=== PATIENT | male | born 1975 | race Caucasian/White ===

== ENCOUNTER 2018-10-15 06:44 | Day surgery (SDC) | payer OTHER ==
[~2018-10-15] VITALS: Ht 175.3 cm; Wt 97.1 kg
[~2018-10-15 06:44] MED LIST: ACYC800; ALBU2.5V5; ALBU90I INH; ALBU90OI INH; ALBU90OI61 INH; ALPR.25 PO; ALPR.5 PO; AMOCLA875 PO; AMOX500 PO; AZIT250 PO; CODGUAEL PO; CRUTCH3 XX; CYCL10; CYCL10 PO; DIAZ5 PO; DOXY100 PO; FLUT.05NI; GABA300T24; GUAI600T33 PO; HYDACE5 PO; HYDGUAL120 PO; HYDROCODON-ACE1 EAC3; IBUP800 PO; KETO10 PO; KETOROLAC60 MG/2 ML; LACT10SY PO; LORA.5 PO; LORA1 PO; LORA2 PO; MOTRIN; Monodox100 MG PO; NAPR500 PO; Naprosyn500 MG PO; Norco 5-325 Ta1 EACH PO; ONDA4 PO; OXYACE5T PO; Omeprazole20 M1; PANT40 PO; PENVK500 PO; PRED20 PO; PROCODE120 PO; PROM25 PO; PROP10 PO; RXLORA1 PO; SPACE CHAMBER1 EACH MC; SUCR1; TRAM50 PO; Zofran4 MG PO
--- NOTE | 2018-10-15 08:53 | NUR ---
10/15/18 0853 Lee Orozco LATE ENTRY: AT BEGINNING OF PROCEDURE PT O2 SATURATION DROPPED TO HIGH 80S. TURNED 02 UP TO 5L, PT 02 SATURATION STABLE T/O REST OF PROCEDURE.
== END 2018-10-15 09:21 | disposition home or self-care (01) ==
LOC: ORSCSDS 06:44
PROVIDERS: Internal Medicine Gastroenterology
PROC: 0DB68ZX Excision of Stomach, Via Natural or Artificial Opening Endoscopic, Diagnostic (ICD-10-PCS; principal; 2018-10-15 08:00)
PROC: 0DBM8ZX Excision of Descending Colon, Via Natural or Artificial Opening Endoscopic, Diagnostic (ICD-10-PCS; principal; 2018-10-15 08:00)
PROC: 0DB58ZX Excision of Esophagus, Via Natural or Artificial Opening Endoscopic, Diagnostic (ICD-10-PCS; principal; 2018-10-15 08:00)
PROC: 0DB98ZX Excision of Duodenum, Via Natural or Artificial Opening Endoscopic, Diagnostic (ICD-10-PCS; principal; 2018-10-15 08:00)
DX: R19.4 Change in bowel habit (principal); R13.10 Dysphagia, unspecified; K92.1 Melena; Z80.0 Family history of malignant neoplasm of digestive organs; R10.13 Epigastric pain; K29.70 Gastritis, unspecified, without bleeding; K29.80 Duodenitis without bleeding; Z87.891 Personal history of nicotine dependence; E78.5 Hyperlipidemia, unspecified; E78.1 Pure hyperglyceridemia; Z79.899 Other long term (current) drug therapy
CPT/HCPCS: 88305; 88342; J0330; J1980; J2250; J2405; J7120

== ENCOUNTER 2019-01-08 06:47 | Day surgery (SDC) | payer OTHER ==
[~2019-01-08] VITALS: Ht 175.3 cm; Wt 100.1 kg
[~2019-01-08 06:47] MED LIST changes: +ACYC800 PO; +Accuneb1.25 MG/3 INH; +KETO60I IM; +Mobic15 MG PO; +Norco 10-325 T1 EACH PO; +Omeprazole20 M1 PO; +SUCR1 PO; +TERB250 PO
== END 2019-01-08 08:55 | disposition home or self-care (01) ==
LOC: ORSCSDS 06:47
PROVIDERS: Internal Medicine Gastroenterology
PROC: 0DB68ZX Excision of Stomach, Via Natural or Artificial Opening Endoscopic, Diagnostic (ICD-10-PCS; principal; 2019-01-08 08:00)
PROC: 0DB88ZX Excision of Small Intestine, Via Natural or Artificial Opening Endoscopic, Diagnostic (ICD-10-PCS; principal; 2019-01-08 08:00)
PROC: 0DB58ZX Excision of Esophagus, Via Natural or Artificial Opening Endoscopic, Diagnostic (ICD-10-PCS; principal; 2019-01-08 08:00)
DX: K21.0 Gastro-esophageal reflux disease with esophagitis (principal); K29.80 Duodenitis without bleeding; R10.13 Epigastric pain; F41.9 Anxiety disorder, unspecified; E78.5 Hyperlipidemia, unspecified; K29.70 Gastritis, unspecified, without bleeding; Z72.0 Tobacco use; Z87.891 Personal history of nicotine dependence; Z79.899 Other long term (current) drug therapy
CPT/HCPCS: 88305; J0461; J1980; J2250; J2405; J2704; J7120

== ENCOUNTER 2019-05-14 09:48 | Day surgery (SDC) | payer OTHER ==
[~2019-05-14] VITALS: Ht 175.3 cm; Wt 102.6 kg
[~2019-05-14 09:48] MED LIST changes: +Prilosec Otc20 MG PO
== END 2019-05-14 12:35 | disposition home or self-care (01) ==
LOC: ORSCSDS 09:48
PROVIDERS: Internal Medicine Gastroenterology
PROC: 0DB68ZX Excision of Stomach, Via Natural or Artificial Opening Endoscopic, Diagnostic (ICD-10-PCS; principal; 2019-05-14 11:00)
DX: R13.10 Dysphagia, unspecified (principal); K20.9 Esophagitis, unspecified; Z87.11 Personal history of peptic ulcer disease; F17.220 Nicotine dependence, chewing tobacco, uncomplicated
CPT/HCPCS: 88305; 88342; J2250; J2704; J7120

== ENCOUNTER 2020-03-02 21:38 | Emergency (ER) | payer OTHER ==
[~2020-03-02] VITALS: Ht 175.3 cm; Wt 94.8 kg
[2020-03-02 22:35] LABS: BASOPHILS ABSOLUTE AUTO 0.03 K/mm3 (0.00-0.23); BASOPHILS PERCENT AUTO 0 % (0-2); EOSINOPHILS ABSOLUTE AUTO 0.22 K/mm3 (0.00-0.68); EOSINOPHILS PERCENT AUTO 2 % (0-6); Hematocrit 43.2 % (37.0-53.0); Hemoglobin 13.7 g/dL (13.5-17.5); IMMATURE GRAN ABSOLUTE AUTO 0.03 K/mm3 (0.00-0.10); IMMATURE GRAN PERCENT AUTO 0 % (0-1); LYMPHOCYTES ABSOLUTE AUTO 2.35 K/mm3 (0.84-5.20); LYMPHOCYTES PERCENT AUTO 25 % (21-46); MONOCYTES ABSOLUTE AUTO 0.57 K/mm3 (0.16-1.47); MONOCYTES PERCENT AUTO 6 % (4-13); Mean Corpuscular HGB 28.5 pg (26.0-34.0); Mean Corpuscular HGB Conc 31.7 g/dL (31.5-36.5); Mean Corpuscular Volume 90 fL (80-100); Mean Platelet Volume 9.5 fL (9.1-12.4); NEUTROPHILS ABSOLUTE AUTO 6.32 K/mm3 (1.96-9.15); NEUTROPHILS PERCENT AUTO 66 % (41-73); Platelet Count 233 K/mm3 (150-400); RDW Coefficient Variation 13.2 % (11.7-14.2); RDW Standard Deviation 43.9 fL (35.1-46.3); Red Blood Cell Count 4.81 M/mm3 (4.30-5.90); White Blood Cell Count 9.52 K/mm3 (4.00-11.30)
[2020-03-02 22:52] LABS: Alanine Aminotransfer (ALT/SGP 54 U/L (12-78); Albumin, Blood 3.8 g/dL (3.4-5.0); Albumin/Globulin Ratio 1.1 (0.8-1.8); Alk Phos 48 U/L (50-136); Anion Gap 4 mmol/L (6-16); Aspartate Aminotrans (AST/SGOT 25 U/L (12-37); Bilirubin, Total 0.3 mg/dL (0.1-1.0); Blood Urea Nitrogen 17 mg/dL (8-24); Bun/Creatinine Ratio 14.8 (12.0-20.0); CO2, Blood 27 mmol/L (21-32); Calcium, Blood 8.8 mg/dL (8.5-10.1); Chloride, Blood 110 mmol/L (98-108); Creatinine, Blood 1.15 mg/dL (0.60-1.20); Globulin, Blood 3.5 g/dL (2.2-4.0); Glomerular Filtration Rate >60 (60-); Glucose, Blood 97 mg/dL (70-99); Potassium, Blood 3.9 mmol/L (3.5-5.5); Sodium, Blood 141 mmol/L (136-145); Total Protein, Blood 7.3 g/dL (6.4-8.2)
[2020-03-03] MEDS ORDERED: Norco 5-325 Ta1 EACH PO (01:52)
[2020-03-03] MEDS ORDERED: ONDA4ODT MM (01:52)
== END 2020-03-03 02:15 | disposition home or self-care (01) ==
LOC: ER 21:38
PROVIDERS: Emergency Medicine
DX: K85.90 Acute pancreatitis without necrosis or infection, unspecified (principal); I10 Essential (primary) hypertension; Z88.8 Allergy status to other drugs, medicaments and biological substances; Z79.899 Other long term (current) drug therapy; Z87.891 Personal history of nicotine dependence
CPT/HCPCS: 36415; 74177; 80053; 83690; 85025; 96361; 96374-59; 96375; 96376; 99284-25; A9270; A9270-GY; J1170; J1885; J2405; J2550; J3010; J7030; Q9967

== ENCOUNTER 2021-05-29 15:19 | Emergency (ER) | payer OTHER ==
[~2021-05-29] VITALS: Ht 175.3 cm; Wt 88.5 kg
[~2021-05-29 15:19] MED LIST changes: +ONDA4ODT MM
== END 2021-05-29 16:34 | disposition home or self-care (01) ==
LOC: ER 15:19
DX: U07.1 COVID-19 (principal); I10 Essential (primary) hypertension; Z88.8 Allergy status to other drugs, medicaments and biological substances; Z79.899 Other long term (current) drug therapy
CPT/HCPCS: 36415; 99285; J1885; J2405

== ENCOUNTER 2021-06-02 11:52 | Emergency (ER) | payer OTHER ==
[~2021-06-02] VITALS: Ht 175.3 cm; Wt 88.5 kg
[2021-06-02 12:33] LABS: Hematocrit 42.1 % (37.0-53.0); Hemoglobin 14.3 g/dL (13.5-17.5); Mean Corpuscular HGB 29.3 pg (26.0-34.0); Mean Corpuscular Volume 86 fL (80-100); Mean Platelet Volume 9.2 fL (9.1-12.4); Platelet Count 178 K/mm3 (150-400); RDW Standard Deviation 44.5 fL (35.1-46.3); Red Blood Cell Count 4.88 M/mm3 (4.30-5.90)
[2021-06-02 12:51] LABS: Alanine Aminotransfer (ALT/SGP 68 U/L (12-78); Albumin, Blood 3.1 g/dL (3.4-5.0); Albumin/Globulin Ratio 0.8 (0.8-1.8); Alk Phos 48 U/L (50-136); Anion Gap 6 mmol/L (6-16); Aspartate Aminotrans (AST/SGOT 85 U/L (12-37); Bilirubin, Total 0.4 mg/dL (0.1-1.0); Blood Urea Nitrogen 13 mg/dL (8-24); Bun/Creatinine Ratio 12.5 (12.0-20.0); CO2, Blood 25 mmol/L (21-32); Calcium, Blood 7.8 mg/dL (8.5-10.1); Chloride, Blood 101 mmol/L (98-108); Creatinine, Blood 1.04 mg/dL (0.60-1.20); Globulin, Blood 3.8 g/dL (2.2-4.0); Glomerular Filtration Rate >60 (60-); Glucose, Blood 130 mg/dL (70-99); Potassium, Blood 4.2 mmol/L (3.5-5.5); Sodium, Blood 132 mmol/L (136-145); Total Protein, Blood 6.9 g/dL (6.4-8.2); Troponin I <0.015 ng/mL (0.000-0.040)
[2021-06-02 12:58] LABS: BAND PERCENT MAN 8 % (0-8); BASOPHILS PERCENT MAN 0 % (0-2); EOSINOPHILS PERCENT MAN 0 % (0-6); LYMPHOCYTES % ATYPICAL MANUAL 13 % (0-0); LYMPHOCYTES ABSOLUTE MAN 2.24 K/mm3 (0.84-5.20); LYMPHOCYTES PERCENT MAN 20 % (21-46); MONOCYTES ABSOLUTE MAN 0.06 K/mm3 (0.16-1.47); MONOCYTES PERCENT MAN 1 % (4-13); NEUTROPHILS ABSOLUTE MAN 4.48 K/mm3 (1.96-9.15); SEG NEUTROPHILS PERCENT MAN 58 % (41-73); TOTAL CELLS COUNTED 100
[2021-06-02] MEDS ORDERED: DEXA2 PO (16:42)
== END 2021-06-02 17:46 | disposition home or self-care (01) ==
LOC: ER 11:52
PROVIDERS: Emergency Medicine Emergency Medical Services
DX: U07.1 COVID-19 (principal); J12.82 Pneumonia due to coronavirus disease 2019; I10 Essential (primary) hypertension; Z88.8 Allergy status to other drugs, medicaments and biological substances; Z79.899 Other long term (current) drug therapy
CPT/HCPCS: 36415; 71045; 80053; 83880; 84484; 85025; 93005; 93010; 96361; 96374; 96375; 99284-25; A9270; J1100; J1885; J7030

== ENCOUNTER 2021-06-04 10:42 | Inpatient (IN) | payer OTHER ==
[~2021-06-04] VITALS: Ht 175.3 cm; Wt 88.5 kg
[~2021-06-04 10:42] MED LIST changes: +DEXA2 PO
[2021-06-04 11:14] LABS: BASOPHILS ABSOLUTE AUTO 0.03 K/mm3 (0.00-0.23); BASOPHILS PERCENT AUTO 0 % (0-2); EOSINOPHILS PERCENT AUTO 0 % (0-6); Hematocrit 40.6 % (37.0-53.0); Hemoglobin 13.8 g/dL (13.5-17.5); IMMATURE GRAN ABSOLUTE AUTO 0.16 K/mm3 (0.00-0.10); IMMATURE GRAN PERCENT AUTO 1 % (0-1); LYMPHOCYTES PERCENT AUTO 6 % (21-46); MONOCYTES ABSOLUTE AUTO 1.09 K/mm3 (0.16-1.47); MONOCYTES PERCENT AUTO 6 % (4-13); Mean Corpuscular HGB 29.4 pg (26.0-34.0); Mean Corpuscular Volume 86 fL (80-100); Mean Platelet Volume 9.7 fL (9.1-12.4); NEUTROPHILS ABSOLUTE AUTO 14.88 K/mm3 (1.96-9.15); NEUTROPHILS PERCENT AUTO 87 % (41-73); Platelet Count 306 K/mm3 (150-400); RDW Coefficient Variation 13.8 % (11.7-14.2); RDW Standard Deviation 44.1 fL (35.1-46.3); White Blood Cell Count 17.16 K/mm3 (4.00-11.30)
[2021-06-04 12:15] LABS: Alanine Aminotransfer (ALT/SGP 72 U/L (12-78); Albumin, Blood 2.8 g/dL (3.4-5.0); Albumin/Globulin Ratio 0.7 (0.8-1.8); Alk Phos 51 U/L (50-136); Anion Gap 10 mmol/L (6-16); Aspartate Aminotrans (AST/SGOT 68 U/L (12-37); Bilirubin, Total 0.5 mg/dL (0.1-1.0); Blood Urea Nitrogen 20 mg/dL (8-24); Bun/Creatinine Ratio 23.4 (12.0-20.0); CO2, Blood 22 mmol/L (21-32); Calcium, Blood 8.1 mg/dL (8.5-10.1); Chloride, Blood 107 mmol/L (98-108); Creatinine, Blood 0.85 mg/dL (0.60-1.20); Globulin, Blood 4.2 g/dL (2.2-4.0); Glomerular Filtration Rate >60 (60-); Glucose, Blood 134 mg/dL (70-99); Potassium, Blood 4.3 mmol/L (3.5-5.5); Sodium, Blood 139 mmol/L (136-145)
--- NOTE | 2021-06-04 17:11 | NUR ---
SHIFT SUMMARY PATIENT ARRIVED ON THE UNIT VIA STRETCHER FROM THE EMERGENCY ROOM. PATIENT IS ALERT AND ORIENTED X4 COMPLAIN OF SUCSTERNAL CHEST AND BACK PAIN. SKIN ASSEMMENT COMPLETED SKINIS WARM DRY MOIST AND INTACT NO OPEN AREA. PATIENT ORIENTED TO ROOM AND CALL LIGHT. PATIENT ON 6L NON REBREATHER IN STABLE CONDITION.
[2021-06-05 05:34] LABS: BASOPHILS ABSOLUTE AUTO 0.03 K/mm3 (0.00-0.23); BASOPHILS PERCENT AUTO 0 % (0-2); EOSINOPHILS PERCENT AUTO 0 % (0-6); Hematocrit 39.4 % (37.0-53.0); Mean Corpuscular HGB 29.1 pg (26.0-34.0); Mean Corpuscular Volume 88 fL (80-100); Mean Platelet Volume 9.1 fL (9.1-12.4); Platelet Count 308 K/mm3 (150-400); RDW Coefficient Variation 13.9 % (11.7-14.2); RDW Standard Deviation 45.1 fL (35.1-46.3); Red Blood Cell Count 4.46 M/mm3 (4.30-5.90); White Blood Cell Count 16.58 K/mm3 (4.00-11.30)
[2021-06-05 05:38] LABS: IMMATURE GRAN ABSOLUTE AUTO 0.12 K/mm3 (0.00-0.10); IMMATURE GRAN PERCENT AUTO 1 % (0-1); LYMPHOCYTES ABSOLUTE AUTO 1.55 K/mm3 (0.84-5.20); LYMPHOCYTES PERCENT AUTO 9 % (21-46); MONOCYTES ABSOLUTE AUTO 1.46 K/mm3 (0.16-1.47); MONOCYTES PERCENT AUTO 9 % (4-13); NEUTROPHILS ABSOLUTE AUTO 13.42 K/mm3 (1.96-9.15); NEUTROPHILS PERCENT AUTO 81 % (41-73)
[2021-06-05 06:03] LABS: Alanine Aminotransfer (ALT/SGP 85 U/L (12-78); Albumin, Blood 2.6 g/dL (3.4-5.0); Albumin/Globulin Ratio 0.7 (0.8-1.8); Alk Phos 54 U/L (50-136); Anion Gap 7 mmol/L (6-16); Aspartate Aminotrans (AST/SGOT 60 U/L (12-37); Bilirubin, Total 0.3 mg/dL (0.1-1.0); Blood Urea Nitrogen 26 mg/dL (8-24); Bun/Creatinine Ratio 28.2 (12.0-20.0); CO2, Blood 24 mmol/L (21-32); Calcium, Blood 7.7 mg/dL (8.5-10.1); Chloride, Blood 110 mmol/L (98-108); Creatinine, Blood 0.92 mg/dL (0.60-1.20); Globulin, Blood 3.8 g/dL (2.2-4.0); Glomerular Filtration Rate >60 (60-); Glucose, Blood 128 mg/dL (70-99); Potassium, Blood 4.2 mmol/L (3.5-5.5); Sodium, Blood 141 mmol/L (136-145); Total Protein, Blood 6.4 g/dL (6.4-8.2)
--- NOTE | 2021-06-05 06:20 | NUR ---
SHIFT SUMMARY PATIENT ALERT AND ORIENTED. HAD NO COMPLAINTS OF PAIN. EASILY DESATS UPON EXHERTION, RT INVOLVED IN CARE. PATIENT CURRENTLY ON 14 LITERS O2 VIA OXYMIZER SATING AT 94%. CALL LIGHT WITHIN REACH. REPORT GIVEN TO ONCOMING RN.
--- NOTE | 2021-06-05 16:42 | NUR ---
PT STATED SHIFT AOX4 WITH ALOT OF ANXIETY TO TO OXYGEN LEVEL. PT WAS RUNNING 85-88% ON 15L OXIMIZER. THIS EXCELLENCE MANAGER NOTIFIED RT AND PT WAS ENCOURAGED TO LAY PRONE IN BED WITH NONREBREATHER RT FOUND PT WAS MOUTH BREATHING. PT'S O2 LEVEL IMMEDIATELYL WENT UP TO 98-100% ON 15L. PT HAS BEEN MAINTAINING O2 LEVELS SINCE AND HAS BEEN ALTERNATING TO PRONE POSITION. PT DOES DESAT WITH ALOT OF MOVEMENT AND HAS TO REST IN BETWEEN ANY POSITION CHANGES IN BED. CALL LIGHT WITHIN REACH WILL CONTINUE TO MONITOR.
--- NOTE | 2021-06-05 22:54 | NUR ---
PHYSICIAN COMMUNICATION CONTACTED EQUIPMENT PROCESSOR PHYSICIAN, DR EDGE, TO NOTIFY HIM THAT THE PATIENT WAS REQUESTING SOMETHING ASIDE FROM TYLENOL FOR PAIN AND SOMETHING TO HELP HIM SLEEP. DR EDGE ORDERED 50 MG PO TRAMADOL Q8 PRN AND 5 MG MELATONIN.
--- NOTE | 2021-06-06 06:16 | NUR ---
SHIFT SUMMARY PATIENT ALERT AND ORIENTED. MEDICATED PER EMAR FOR PAIN AND SLEEP. PATIENT CURRENTLY ON 15 LITERS O2 VIA NRB. NO ACUTE ISSUES NOTED OVERNIGHT. CALL LIGHT WITHIN REACH. REPORT GIVEN TO ONCOMING RN.
--- NOTE | 2021-06-06 17:13 | NUR ---
SHIFT SUMMARY PATIENT IS ALERT AND ORIENTED X4. PATIENT HAS BEEN ANXIOUS TO HIS CURRENT OXYGEN SATS. PATIENT IS CURRENTLY SATTING IN THE MID 90S ON 15 LITERS ON OXIMIZER. PATIENT WAS ANXIOUS ABOUT REPOSITIONING BUT HAS SATTED BETTWER IN SIDE LAYING POSITION. NO ACUTE EVENTS THIS SHIFT. WILL CONTINUE TO MONITOR UNTIL CHANGE OF SHIFT. BED IN LOCKED AND LOWEST POSITION. CALL LIGHT IN REACH.
--- NOTE | 2021-06-07 04:44 | NUR ---
SHIFT SUMMARY AOX4. PT HIGHLY ANXIOUS ABOUT BREATHING & SPO2 LEVELS, REPORTED TO THIS NURSE HE DIDNT FEEL COMFORTABLE IF I LEFT THE ROOM & WAS SCARED TO BE IN HOSPITAL, EDUCATED PT STATISTICAL CLERK ADVERTISING LIGHT. STATES HE USE TO TAKE XANAX FOR ANXIETY. LAST NIGHT PT STARTED COUGHING, USED CALL LIGHT TO SAY HE WAS "CHOKING" & COULDNT BREATH SPO2 94% ON 16L NONREBREATHER @THIS TIME, HOWEVER WITHIN A FEW MIN PT HAD WORKED HIMSELF UP & SPO2 DROPPED TO 80-84%. WHEN ASSESSING PT HE REPORTED HE WAS HAVING A PANIC ATTACK. INFORMED DR ANNE & SHE ORDERED PRN HYDRALAZINE. THIS AM I TITRATED O2 FROM 16L TO 14.5L SINCE PT SPO2 97-100% WHILE PT ASLEEP & LYING ON SIDE. HOWEVER PT WOKE UP & STATED "DID YOU TURN MY O2 DOWN?" & LOOKED ANXIOUS WITHIN A FEW MIN SPO2 DROPPED TO 81-84% AGAIN, GAVE PRN HYDRALAZINE & TURNED O2 BACK TO 16L ON NON REBREATHER. SPO2 CURRENTLY @99% WHILE PT RESTING. REPORTS LOW BACK PAIN, MEDICATED 1X c ULTRAM & APPLIED HEATING PAD. DENIES N/V. CALL LIGHT IN REACH. WCTM UNTIL NEXT SHIFT ASSUMES CARE.
[2021-06-07 05:52] LABS: BASOPHILS ABSOLUTE AUTO 0.04 K/mm3 (0.00-0.23); BASOPHILS PERCENT AUTO 0 % (0-2); EOSINOPHILS PERCENT AUTO 0 % (0-6); Hematocrit 42.6 % (37.0-53.0); Hemoglobin 14.2 g/dL (13.5-17.5); IMMATURE GRAN ABSOLUTE AUTO 0.15 K/mm3 (0.00-0.10); IMMATURE GRAN PERCENT AUTO 1 % (0-1); LYMPHOCYTES ABSOLUTE AUTO 1.79 K/mm3 (0.84-5.20); LYMPHOCYTES PERCENT AUTO 13 % (21-46); MONOCYTES ABSOLUTE AUTO 1.18 K/mm3 (0.16-1.47); MONOCYTES PERCENT AUTO 8 % (4-13); Mean Corpuscular HGB 29.5 pg (26.0-34.0); Mean Corpuscular HGB Conc 33.3 g/dL (31.5-36.5); Mean Corpuscular Volume 88 fL (80-100); Mean Platelet Volume 9.1 fL (9.1-12.4); NEUTROPHILS ABSOLUTE AUTO 10.85 K/mm3 (1.96-9.15); NEUTROPHILS PERCENT AUTO 77 % (41-73); Platelet Count 378 K/mm3 (150-400); RDW Coefficient Variation 13.9 % (11.7-14.2); RDW Standard Deviation 45.1 fL (35.1-46.3); Red Blood Cell Count 4.82 M/mm3 (4.30-5.90); White Blood Cell Count 14.01 K/mm3 (4.00-11.30)
[2021-06-07 06:39] LABS: Alanine Aminotransfer (ALT/SGP 171 U/L (12-78); Albumin, Blood 2.7 g/dL (3.4-5.0); Albumin/Globulin Ratio 0.7 (0.8-1.8); Alk Phos 68 U/L (50-136); Anion Gap 7 mmol/L (6-16); Aspartate Aminotrans (AST/SGOT 65 U/L (12-37); Bilirubin, Total 0.6 mg/dL (0.1-1.0); Blood Urea Nitrogen 23 mg/dL (8-24); Bun/Creatinine Ratio 23.5 (12.0-20.0); CO2, Blood 25 mmol/L (21-32); Calcium, Blood 8.2 mg/dL (8.5-10.1); Chloride, Blood 107 mmol/L (98-108); Creatinine, Blood 0.98 mg/dL (0.60-1.20); Globulin, Blood 3.9 g/dL (2.2-4.0); Glomerular Filtration Rate >60 (60-); Glucose, Blood 93 mg/dL (70-99); Potassium, Blood 4.4 mmol/L (3.5-5.5); Sodium, Blood 139 mmol/L (136-145); Total Protein, Blood 6.6 g/dL (6.4-8.2)
--- NOTE | 2021-06-07 17:19 | NUR ---
SHIFT SUMMARY PATIENT HAS BEEN ON 10 LITERS HIGH FLOW NASAL CANNULA DURING SHIFT AND SATTING >92. PATIENT HAS BEEN ANXIOUS MILDLY ABOUT NOT BEING ABLE TO BREATHE BUT WHEN PATIENT STATED THIS, HIS SATS WERE 95-65%. PATIENT WAS GIVEN HYDRALZINE ONCE THIS SHIFT AND HAS HAD NO OTHER EPISODES OF ANXIETY THIS SHIFT. NO OTHER ACUTE EVENTS THIS SHIFT. PATIENT HAS NO OTHER COMPLAINTS OF PAIN, NAUSEA OR VOMITTING THIS SHIFT. VITAL SIGNS REVIEWED. WILL CONTINUE TO MONITOR UNTIL SHIFT CHANGE.
--- NOTE | 2021-06-08 06:11 | NUR ---
SHIFT SUMMARY AOX4. VSS. PT MORE CALM TONIGHT, GAVE 25MG ATARAX 2X THIS SHIFT FOR ANXIETY. NO PANIC ATTACKS. SPO2 90-94% ON 10L O2 VIA HF NC. LS DIM. E/U RESP. REPORTS NASAL CONGESTION, INFORMED DR ANNE & SHE ORDERED NASAL SPRAY. GAVE NASAL SPRAY THIS AM & PT ABLE TO BLOW NOSE AFTERWARDS. LARGE MUCUS BLOOD CLOT WAS DISLODGE FROM NASAL PASSAGE. PT STATED HE FELT BETTER AFTER & WAS ABLE TO BREATH MORE EASY. REPORTED 5/10 PAIN IN LOW BACK, MEDICATED 1X c TRAMADOL, NO FURTHER DISCOMFORT REPORTED. CALL LIGHT IN REACH, ABLE TO MAKE NEEDS KNOWN.
--- NOTE | 2021-06-08 14:12 | NUR ---
PT CHANGED TO REGULAR NC AT 6 LPM. O2 SATS 90%. PT DESATS TO 86% WHEN STANDING.
--- NOTE | 2021-06-08 16:11 | NUR ---
PT HANDOFF TO MAYELIN FORTUNE. REPORT GIVEN. PT A/O STANDBY ASSIST IN ROOM AT THIS TIME. CURRENTLY ON 6 LPM VIA NC WITH SATS 90-94% AT REST AND DIPS TO 86% WHEN UP TO BSC. PT HAS HAD BEEN BLOWING NOSE WITH SMALL AMT OF BLOOD IN MUCOUS BUT NO ACTIVE BLEEDING. PT USING NASAL SPRAY. MEAL AND FLUID INTAKE ENCOURAGED AND IMPROVING.
--- NOTE | 2021-06-08 18:24 | NUR ---
SHIFT SUMMARY: ASSUMED CARE OF PATIENT AT 1611. O2 @ 6 L/MIN NC, HUMIDIFIED, CONTINUOUS OXIMETRY SHOWS 92-94%. DENIES PAIN. IS RESTING COMFORTABLY AT THIS TIME.
[2021-06-09 05:39] LABS: BASOPHILS ABSOLUTE AUTO 0.08 K/mm3 (0.00-0.23); BASOPHILS PERCENT AUTO 1 % (0-2); EOSINOPHILS ABSOLUTE AUTO 0.09 K/mm3 (0.00-0.68); EOSINOPHILS PERCENT AUTO 1 % (0-6); Hematocrit 45.7 % (37.0-53.0); Hemoglobin 14.6 g/dL (13.5-17.5); IMMATURE GRAN ABSOLUTE AUTO 0.59 K/mm3 (0.00-0.10); IMMATURE GRAN PERCENT AUTO 5 % (0-1); LYMPHOCYTES ABSOLUTE AUTO 2.35 K/mm3 (0.84-5.20); LYMPHOCYTES PERCENT AUTO 18 % (21-46); MONOCYTES PERCENT AUTO 12 % (4-13); Mean Corpuscular HGB 28.6 pg (26.0-34.0); Mean Corpuscular HGB Conc 31.9 g/dL (31.5-36.5); Mean Corpuscular Volume 89 fL (80-100); Mean Platelet Volume 9.2 fL (9.1-12.4); NEUTROPHILS ABSOLUTE AUTO 8.34 K/mm3 (1.96-9.15); NEUTROPHILS PERCENT AUTO 64 % (41-73); Platelet Count 481 K/mm3 (150-400); RDW Coefficient Variation 13.5 % (11.7-14.2); RDW Standard Deviation 43.9 fL (35.1-46.3); Red Blood Cell Count 5.11 M/mm3 (4.30-5.90); White Blood Cell Count 13.05 K/mm3 (4.00-11.30)
[2021-06-09 05:59] LABS: Alanine Aminotransfer (ALT/SGP 100 U/L (12-78); Albumin, Blood 2.8 g/dL (3.4-5.0); Albumin/Globulin Ratio 0.6 (0.8-1.8); Alk Phos 68 U/L (50-136); Anion Gap 5 mmol/L (6-16); Aspartate Aminotrans (AST/SGOT 15 U/L (12-37); Bilirubin, Total 0.6 mg/dL (0.1-1.0); Blood Urea Nitrogen 25 mg/dL (8-24); Bun/Creatinine Ratio 21.4 (12.0-20.0); CO2, Blood 26 mmol/L (21-32); Calcium, Blood 8.7 mg/dL (8.5-10.1); Chloride, Blood 107 mmol/L (98-108); Creatinine, Blood 1.17 mg/dL (0.60-1.20); Globulin, Blood 4.5 g/dL (2.2-4.0); Glomerular Filtration Rate >60 (60-); Glucose, Blood 109 mg/dL (70-99); Magnesium, Blood 3.1 mg/dL (1.6-2.4); Potassium, Blood 4.4 mmol/L (3.5-5.5); Sodium, Blood 138 mmol/L (136-145); Total Protein, Blood 7.3 g/dL (6.4-8.2)
--- NOTE | 2021-06-09 06:20 | NUR ---
RECEIVED PATIENT IN BED AAOX3. HE DENIES ANY DISCOMFORT. RESPIRATION ON LABORED. ON O2 5L NC SATURATING AT 94%. NO RESPIRATORY DISTRESS. SAFETY AND COMFORT MEASURES MAINTAINED.
[2021-06-09] MEDS ORDERED: DEXAMETHASONE1 M1 PO (09:54)
[2021-06-09] MEDS ORDERED: ACET325 PO (09:55)
[2021-06-09] MEDS ORDERED: ALBU90OI INH (09:55)
[2021-06-09] MEDS ORDERED: ASCO500 PO (09:55)
[2021-06-09] MEDS ORDERED: HYDHCL25 PO (09:56)
[2021-06-09] MEDS ORDERED: ROBITUSSIN DM PO (09:56)
[2021-06-09] MEDS ORDERED: BENZ100A PO (09:56)
[2021-06-09] MEDS ORDERED: MELATONIN5 M1 PO (09:56)
[2021-06-09] MEDS ORDERED: PANT40 PO (09:57)
[2021-06-09] MEDS ORDERED: NASAL SPRAY88 ML (09:58)
[2021-06-09] MEDS ORDERED: TRAM50 PO (09:58)
[2021-06-09] MEDS ORDERED: VISBIOME 112.51 EACH PO (09:58)
[2021-06-09] MEDS ORDERED: ZINC220 PO (09:59)
[2021-06-09] MEDS ORDERED: VITAMIN D31000 UNI1 PO (09:59)
--- NOTE | 2021-06-09 18:17 | NUR ---
PATIENT DISCHARGED TO HOME WITH S.O. VERBLAIZED UNDERSTANDING OF DISCHARGE INSTRUCTIONS. HAS TELEHEALTH F/U APPOINTMENT WITH PCP. [facility] 1654 VIA W/C. NO PERSONAL BELONGINGS LEFT BEHIND.
== END 2021-06-09 16:54 | disposition home or self-care (01) | DRG 177 ==
LOC: ER 10:42 → MEDS 15:16
PROVIDERS: Emergency Medicine; Family Medicine; Internal Medicine; ADMIT Hospitalist
PROC: 8E0ZXY6 Isolation (ICD-10-PCS; principal; 2021-06-04)
PROC: XW033E5 Introduction of Remdesivir Anti-infective into Peripheral Vein, Percutaneous Approach, New Technology Group 5 (ICD-10-PCS; 2021-06-04)
PROC: 3E0333Z Introduction of Anti-inflammatory into Peripheral Vein, Percutaneous Approach (ICD-10-PCS; 2021-06-04)
PROC: 5A0945A Assistance with Respiratory Ventilation, 24-96 Consecutive Hours, High Flow/Velocity Cannula (ICD-10-PCS; 2021-06-04)
DX: U07.1 COVID-19 (principal); J96.01 Acute respiratory failure with hypoxia; J12.82 Pneumonia due to coronavirus disease 2019; F41.9 Anxiety disorder, unspecified; F32.9 Major depressive disorder, single episode, unspecified; K21.9 Gastro-esophageal reflux disease without esophagitis; F43.10 Post-traumatic stress disorder, unspecified; R41.82 Altered mental status, unspecified; R79.89 Other specified abnormal findings of blood chemistry; T38.0X5A Adverse effect of glucocorticoids and synthetic analogues, initial encounter; I10 Essential (primary) hypertension; Z98.890 Other specified postprocedural states; Z88.8 Allergy status to other drugs, medicaments and biological substances; Z79.52 Long term (current) use of systemic steroids; Z79.899 Other long term (current) drug therapy
CPT/HCPCS: 36415; 71045; 80053; 82728; 82947; 83735; 84145; 85025; 85379; 86140; 86141; 93005; 93010; 94640; 94762; 96365; 96375; 99285-25; A9270; J1100; J1650; J1885

== ENCOUNTER 2023-05-28 18:58 | Emergency (ER) | payer OTHER ==
[~2023-05-28] VITALS: Ht 175.3 cm; Wt 90.7 kg
[~2023-05-28 18:58] MED LIST changes: +ACET325 PO; +ASCO500 PO; +BENZ100A PO; +DEXAMETHASONE1 M1 PO; +HYDHCL25 PO; +MELATONIN5 M1 PO; +NASAL SPRAY88 ML; +ROBITUSSIN DM PO; +VISBIOME 112.51 EACH PO; +VITAMIN D31000 UNI1 PO; +ZINC220 PO
[2023-05-28 20:48] LABS: BASOPHILS ABSOLUTE AUTO 0.04 K/mm3 (0.00-0.23); BASOPHILS PERCENT AUTO 0 % (0-2); EOSINOPHILS ABSOLUTE AUTO 0.21 K/mm3 (0.00-0.68); EOSINOPHILS PERCENT AUTO 2 % (0-6); Hematocrit 43.6 % (37.0-53.0); Hemoglobin 14.5 g/dL (13.5-17.5); IMMATURE GRAN ABSOLUTE AUTO 0.03 K/mm3 (0.00-0.10); IMMATURE GRAN PERCENT AUTO 0 % (0-1); LYMPHOCYTES ABSOLUTE AUTO 2.51 K/mm3 (0.84-5.20); LYMPHOCYTES PERCENT AUTO 23 % (21-46); MONOCYTES ABSOLUTE AUTO 0.66 K/mm3 (0.16-1.47); MONOCYTES PERCENT AUTO 6 % (4-13); Mean Corpuscular HGB 29.3 pg (26.0-34.0); Mean Corpuscular HGB Conc 33.3 g/dL (31.5-36.5); Mean Corpuscular Volume 88 fL (80-100); Mean Platelet Volume 9.3 fL (9.1-12.4); NEUTROPHILS ABSOLUTE AUTO 7.46 K/mm3 (1.96-9.15); NEUTROPHILS PERCENT AUTO 68 % (41-73); Platelet Count 244 K/mm3 (150-400); RDW Coefficient Variation 13.2 % (11.7-14.2); Red Blood Cell Count 4.95 M/mm3 (4.30-5.90); White Blood Cell Count 10.91 K/mm3 (4.00-11.30)
[2023-05-28 21:04] LABS: Albumin/Globulin Ratio 1.2 (0.8-1.8); Bilirubin, Total 0.4 mg/dL (0.1-1.0); Bun/Creatinine Ratio 17.4 (12.0-20.0); Calcium, Blood 8.9 mg/dL (8.5-10.1); Creatinine, Blood 1.09 mg/dL (0.60-1.20); Globulin, Blood 3.4 g/dL (2.2-4.0); Total Protein, Blood 7.4 g/dL (6.4-8.2)
[2023-05-28] MEDS ORDERED: SUCR1 (22:42)
[2023-05-28] MEDS ORDERED: HYDROCODONE-AC1 EAC7 PO (22:42)
[2023-05-28 23:15] VITALS: BP 121/71
[2023-05-28] MEDS ORDERED: MECL25 PO (23:23)
== END 2023-05-28 23:37 | disposition home or self-care (01) ==
LOC: ER 18:58
PROVIDERS: Student in an Organized Health Care Education/Training Program
DX: H81.10 Benign paroxysmal vertigo, unspecified ear (principal); I10 Essential (primary) hypertension; Z88.8 Allergy status to other drugs, medicaments and biological substances; Z79.899 Other long term (current) drug therapy
CPT/HCPCS: 80053; 85025; 93005; 93010; 99284-25

== ENCOUNTER 2024-03-13 19:31 | Emergency (ER) | payer BC ==
[~2024-03-13] VITALS: Ht 175.3 cm; Wt 93.0 kg
[~2024-03-13 19:31] MED LIST changes: +HYDROCODONE-AC1 EAC7 PO; +MECL25 PO
[2024-03-13 19:37] VITALS: BP 132/98
[2024-03-13 20:29] LABS: Influenza A, PCR NEGATIVE (NEGATIVE); Influenza B, PCR NEGATIVE (NEGATIVE); Resp Syncytial Virus, PCR NEGATIVE (NEGATIVE); SARS-Cov-2 (COVID-19) PCR, MMC NEGATIVE (NEGATIVE)
== END 2024-03-13 20:54 | disposition home or self-care (01) ==
LOC: ER 19:31
PROVIDERS: Nurse Practitioner
DX: R05.9 Cough, unspecified (principal); Z88.8 Allergy status to other drugs, medicaments and biological substances; Z79.899 Other long term (current) drug therapy; F43.10 Post-traumatic stress disorder, unspecified; I10 Essential (primary) hypertension
CPT/HCPCS: 0241U; 71046; 99283-25

== ENCOUNTER → 2024-06-13 | Outpatient (CLI) | payer BC ==
[2024-06-17 15:15] LABS: APTIMA MEDIA TYPE Urine; C. TRACHOMATIS BY TMA Negative (Negative); N. GONORRHOEAE BY TMA Negative (Negative); SPECIMEN SOURCE Urine
== END | disposition home or self-care (01) ==
LOC: LAB SHORT 17:05 → LAB 17:05
PROVIDERS: Physician Assistant
DX: Z20.9 Contact with and (suspected) exposure to unspecified communicable disease (principal)
CPT/HCPCS: 87491; 87591